=== PATIENT | female | born 1995 | race Caucasian/White ===

== ENCOUNTER 2021-05-12 10:34 | Emergency (ER) | payer SELFPAY ==
[2021-05-12 10:49] VITALS: BP 127/75; PULSE 102; TEMP 97.9; BMI 24.2
[2021-05-12] MEDS ORDERED: DIPHTH,PERTUSS(ACELL),TET 0.5 ML DISP.SYRIN IM ONE ×2 (11:29→11:34)
[2021-05-12] MEDS ORDERED: IBUPROFEN 600 MG TABLET (FP) PO ONE ×2 (11:29→11:34)
== END 2021-05-12 11:39 | disposition home or self-care (01) ==
LOC: JERFT 10:34
PROC: 3E0234Z Introduction of Serum, Toxoid and Vaccine into Muscle, Percutaneous Approach (ICD-10-PCS; principal; 2021-05-12)
DX: S61.411A Laceration without foreign body of right hand, initial encounter (principal); W26.0XXA Contact with knife, initial encounter
CPT/HCPCS: 90715; 99284-25